=== PATIENT | male | born 1950 | race Caucasian/White ===

== ENCOUNTER 2018-02-24 10:11 | Emergency (ER) | payer MEDICARE, BC ==
[2018-02-24] MEDS ORDERED: Sodium Chloride 0.9% 10 ML Syringe FLUSH PRN (10:28)
[2018-02-24] MEDS ORDERED: Ketorolac 30 MG/ML SDV IVPUSH ONE (10:28)
--- NOTE | 2018-02-24 10:33 | EDM.PDOC ---
ED HPI GENERAL MEDICAL PROBLEM - General Chief Complaint: Genitourinary Problem Stated Complaint: SEVERE PAIN IN LOWER BACK Time Seen by Provider: 02/24/18 10:23 Source of Information: Reports: Patient, Family History Limitations: Reports: No Limitations - History of Present Illness INITIAL COMMENTS - FREE TEXT/NARRATIVE: 67-year-old male with fairly sudden left flank and left lower back pain this morning. He had a brief episode of similar pain 2 days ago but it resolved. Today it's much worse, and is having urinary symptoms of urgency and frequency but small amounts. He has not had pain like this in the past, he is usually very healthy and walks 6 miles every day. No fevers or chills. Nausea but no vomiting. Onset: Sudden Duration: Hour(s): (Pain is been ongoing for the past one hour) Location: Reports: Back Severity: Severe Associated Symptoms: Reports: Other (Urinary symptoms as in history of present illness) Right Lower Back Pain Score (Numeric/FACES): 10 - Related Data Allergies Allergy/AdvReac Type Severity Reaction Status Date / Time Penicillins Allergy Hives Verified 02/24/18 10:18 Home Meds: Home Meds NK [No Known Home Meds] 02/24/18 [History] Past Medical History Cardiovascular History: Reports: Hypertension Social & Family History - Tobacco Use Smoking Status *Q: Unknown Ever Smoked ED ROS GENERAL - Review of Systems Review Of Systems: See Below Constitutional: Denies: Fever, Chills HEENT: Reports: No Symptoms Respiratory: Reports: No Symptoms Cardiovascular: Reports: No Symptoms GI/Abdominal: Denies: Abdominal Pain : Reports: Frequency, Urgency Musculoskeletal: Reports: Back Pain Skin: Reports: No Symptoms Neurological: Reports: No Symptoms Psychiatric: Reports: No Symptoms ED EXAM, GENERAL - Physical Exam Exam: See Below Exam Limited By: No Limitations General Appearance: Alert, Anxious, Moderate Distress Respiratory/Chest: No Respiratory Distress, Lungs Clear Cardiovascular: Regular Rate, Rhythm GI/Abdominal: Non-Tender Back Exam: Other (Marked tenderness to palpation of the left paraspinous muscles ) Course - Vital Signs Last Recorded V/S: Last Vital Signs Temp 97.7 F 02/24/18 11:58 Pulse 71 02/24/18 11:58 Resp 14 02/24/18 11:58 BP 177/105 H 02/24/18 11:58 Pulse Ox 100 02/24/18 11:58 - Orders/Labs/Meds Orders: Active Orders 24 hr Category Date Time Status UA W/MICROSCOPIC [URIN] Urgent Lab 02/24/18 10:29 Ordered Saline Lock Insert [OM.PC] Routine Oth 02/24/18 10:28 Ordered Labs: Laboratory Tests 02/24/18 Range/Units 10:29 Urine Color Yellow Urine Appearance Slightly cloudy Urine pH 5.0 (4.5-8.0) Ur Specific [place] 1.020 (1.008-1.030) Urine Protein Negative (NEGATIVE) mg/dL Urine Glucose (UA) Normal (NEGATIVE) mg/dL Urine Ketones 15 H (NEGATIVE) mg/dL Urine Occult Blood Large (NEGATIVE) Urine Nitrite Negative (NEGAITVE) Urine Bilirubin Negative (NEGATIVE) Urine Urobilinogen Normal (NORMAL) mg/dL Ur Leukocyte Esterase Negative (NEGATIVE) Urine RBC 5-10 H (0-5) Urine WBC Not seen (0-5) Ur Epithelial Cells Rare Amorphous Sediment Not seen Urine Bacteria Rare Urine Mucus Rare Meds: Medications Discontinued Medications Generic Name Dose Route Start Last Admin Trade Name Freq PRN Reason Stop Dose Admin Ketorolac Tromethamine 30 mg 02/24/18 10:28 02/24/18 10:36 Toradol IVPUSH 02/24/18 10:29 30 mg ONETIME ONE Administration Sodium Chloride 10 ml 02/24/18 10:28 02/24/18 10:35 Saline Flush FLUSH 10 ml ASDIRECTED PRN Administration Keep Vein Open Tamsulosin HCl 0.4 mg 02/24/18 11:20 02/24/18 11:57 Flomax PO 02/24/18 11:21 0.4 mg ONETIME ONE Administration - Re-Assessments/Exams Free Text/Narrative Re-Assessment/Exam: 02/24/18 10:32 History is typical of a renal stone, exam indicates a possible muscle component as well. A saline lock was started, a UA was collected and the patient was given 30 mg of IV Toradol. A CT scan of the abdomen and pelvis without contrast will be obtained. 02/24/18 11:33 UA showed a small amount of ketones and RBCs, no evidence of inflammation. CT scan confirmed a distal very small obstructing left renal stone at the bladder. Patient felt much better after the Toradol. He was then given 0.4 mg of oral Flomax. 02/24/18 11:43 Patient continued to feel a small amount of pressure but overall was feeling much better. He is going to take a regular dose of Aleve or ibuprofen and stay hydrated, returning if not improving satisfactorily in the next few days or sooner if worsening such as persistent vomiting or uncontrolled pain. Departure - Departure Time of Disposition: 12:43 Disposition: Home, Self-Care 01 Condition: Good Clinical Impression: Kidney stone - Discharge Information Instructions: Kidney Stones, [id number] Referrals: Nav Castillo PA [Primary Care Provider] - Forms: ED Department Discharge Care Plan Goals: Stay hydrated, a regular dose of ibuprofen or naproxen should help if you persist with symptoms. Return if worsening such as persistent vomiting or uncontrolled pain. - My Orders Last 24 Hours: My Active Orders 02/24/18 10:28 Saline Lock Insert [OM.PC] Routine 02/24/18 10:29 UA W/MICROSCOPIC [URIN] Urgent - Assessment/Plan Last 24 Hours: My Active Orders 02/24/18 10:28 Saline Lock Insert [OM.PC] Routine 02/24/18 10:29 UA W/MICROSCOPIC [URIN] Urgent
[2018-02-24] MEDS ORDERED: Tamsulosin 0.4 MG Cap.ER PO ONE (11:20)
--- NOTE | 2018-02-24 11:38 | CT ---
Abdomen Pelvis wo Cont CLINICAL HISTORY: Left flank pain COMPARISON: None. TECHNIQUE: Axial tomographic images are obtained from the dome of the diaphragm to the pubic symphysi s without IV contrast enhancement. No oral contrast was used. Auto dosage reduction and iterative rec onstruction techniques employed. FINDINGS: The lung bases are clear. The liver is free of mass or biliary dilatation. The gallbladder has a normal appearance. The spleen has a normal size and shape. The pancreas shows no mass or inflam matory change. The adrenal glands appear normal bilaterally. No right renal calculi are identified. T here are some low-attenuation foci in the renal pelvis which appear to be parapelvic cysts. There is moderate left-sided hydronephrosis. There is perinephric and proximal ureteric stranding The re are some small stones in the lower pole calyces. The right ureter is dilated along its length. The re is a 2 x 5 mm stone in the left distal ureter at the UVJ. There is some generalized bladder wall t hickening which is exaggerated by nondistention. There are atherosclerotic changes in the aorta. Ther e is a normal caliber appendix. The there is a 1.0 x 1.7 cm appendicolith in the proximal portion IMPRESSION: 2 x 5 mm obstructing left distal ureteral calculus with moderate hydronephrosis and hydro ureter on the left. The there are scattered small calcifications in the lower pole of the left kidney Parapelvic cysts in the right kidney Large appendicolith with no evidence of appendicitis
== END 2018-02-24 12:44 | disposition home or self-care (01) ==
LOC: JP.ED 10:11
DX: N13.2 Hydronephrosis with renal and ureteral calculous obstruction (principal); I10 Essential (primary) hypertension; Z88.0 Allergy status to penicillin
CPT/HCPCS: 74176; 81001; 96374; 99284; A9270; J1885; J7050

== ENCOUNTER 2019-09-07 22:03 | Emergency (ER) | payer BC, MEDICARE ==
[2019-09-07] MEDS ORDERED: Ondansetron 4 MG/2 ML SDV IVPUSH ONE (22:41)
[2019-09-07] MEDS ORDERED: HYDROmorphone 1 MG/ML Syringe IVPUSH ONE (22:41)
[2019-09-07] MEDS ORDERED: Sodium Chloride 0.9% 1,000 ML IV SCH (22:45)
--- NOTE | 2019-09-07 22:54 | EDM.PDOC ---
ED HPI GENERAL MEDICAL PROBLEM - General Chief Complaint: Flank Pain Stated Complaint: LOWER BACK PAIN Time Seen by Provider: 09/07/19 22:32 Source of Information: Reports: Patient History Limitations: Reports: No Limitations - History of Present Illness INITIAL COMMENTS - FREE TEXT/NARRATIVE: chief complaint: kidney stone This is a 68 year old male presents to ER for evaluation for kidney stones. He reports was doing fine until he went out for his afternoon walked at 3:30pm and developed sudden onset of right sided back pain. Reports was difficult to walk back home - since has had constant right sided pain. denies hematuria, fever, chills, nausea, vomiting. Onset: Sudden Onset Date: 09/07/19 Onset Time: 15:30 Duration: Hour(s):, Getting Worse Location: Reports: Other (right flank pain) Quality: Reports: Same as Previous Episode (history of left sided kidney stones) Severity: Severe Improves with: Reports: None Worsens with: Reports: None Associated Symptoms: Reports: No Other Symptoms Right Lower Back Pain Score (Numeric/FACES): 10 - Related Data Allergies Allergy/AdvReac Type Severity Reaction Status Date / Time Penicillins Allergy Hives Verified 02/24/18 10:18 Home Meds: Home Meds NK [No Known Home Meds] 02/24/18 [History] Past Medical History Cardiovascular History: Reports: Hypertension ED ROS GENERAL - Review of Systems Review Of Systems: See Below Constitutional: Reports: Other (right flank pain) HEENT: Reports: No Symptoms Respiratory: Reports: No Symptoms Cardiovascular: Reports: No Symptoms GI/Abdominal: Reports: Abdominal Pain (right flank ) : Reports: Flank Pain (right) Musculoskeletal: Reports: No Symptoms Skin: Reports: No Symptoms Neurological: Reports: No Symptoms Psychiatric: Reports: No Symptoms Hematologic/Lymphatic: Reports: No Symptoms Immunologic: Reports: No Symptoms ED EXAM, GI/ABD - Physical Exam Exam: See Below Exam Limited By: No Limitations General Appearance: Alert, WD/WN, Moderate Distress Eyes: Bilateral: Normal Appearance, EOMI Ears: Normal External Exam, Normal Canal, Hearing Grossly Normal, Normal TMs Nose: Normal Inspection, Normal Mucosa, No Blood Throat/Mouth: Normal Inspection, Normal Lips, Normal Teeth, Normal Gums, Normal Oropharynx, Normal Voice, No Airway Compromise Head: Atraumatic, Normocephalic Neck: Normal Inspection, Supple, Non-Tender, Full Range of Motion Respiratory/Chest: No Respiratory Distress, Lungs Clear, Normal Breath Sounds, No Accessory Muscle Use, Chest Non-Tender Cardiovascular: Normal Peripheral Pulses GI/Abdominal Exam: Normal Bowel Sounds, Soft, No Distention, No Abnormal Bruit, Tender (right sided abdomen) (Male) Exam: Deferred Rectal (Males) Exam: Deferred Back Exam: CVA Tenderness (R) Extremities: Normal Inspection, Normal Range of Motion, Non-Tender, Normal Capillary Refill, No Pedal Edema Neurological: Alert, Oriented, CN II-XII Intact, Normal Cognition, Normal Gait, Normal Reflexes, No Motor/Sensory Deficits Psychiatric: Normal Affect, Normal Mood Skin Exam: Warm, Dry, Intact, Normal Color, No Rash Lymphatic: No Adenopathy Course - Vital Signs Last Recorded V/S: Last Vital Signs Temp 37.0 C 09/07/19 23:01 Pulse 75 09/07/19 23:01 Resp 16 09/07/19 23:01 BP 183/99 H 09/07/19 23:01 Pulse Ox 95 09/07/19 23:01 - Orders/Labs/Meds Orders: Active Orders 24 hr Category Date Time Status Sodium Chloride 0.9% [Normal Saline] 1,000 ml Med 09/07/19 22:45 Active IV ASDIRECTED Medication Orders Sodium Chloride (Normal Saline) 1,000 mls @ 999 mls/hr IV ASDIRECTED UVALDO Last Admin: 09/07/19 22:50 Dose: 999 mls/hr Labs: Laboratory Tests 09/07/19 09/07/19 09/07/19 Range/Units 22:34 22:55 22:55 WBC 11.7 H (4.5-11.0) K/uL RBC 5.01 (4.30-5.90) M/uL Hgb 15.3 H (12.0-15.0) g/dL Hct 45.6 (40.0-54.0) % MCV 91 (80-98) fL MCH 31 (27-31) pg MCHC 34 (32-36) % Plt Count 250 (150-400) K/uL Neut % (Auto) 87 H (36-66) % Lymph % (Auto) 6 L (24-44) % Caroline % (Auto) 7 H (2-6) % Eos % (Auto) 0 L (2-4) % Baso % (Auto) 0 (0-1) % Sodium 138 L (140-148) mmol/L Potassium 4.0 (3.6-5.2) mmol/L Chloride 105 (100-108) mmol/L Carbon Dioxide 26 (21-32) mmol/L Anion Gap 11.0 (5.0-14.0) mmol/L BUN 28 H (7-18) mg/dL Creatinine 1.7 H (0.8-1.3) mg/dL Est Cr Clr Drug Dosing 46.28 mL/min Estimated GFR (MDRD) 40 L (>60) Glucose 118 H (74-106) mg/dL Calcium 10.3 H (8.5-10.1) mg/dL Urine Color Yellow (YELLOW) Urine Appearance Clear (CLEAR) Urine pH 7.0 (5.0-8.0) Ur Specific [place] 1.025 (1.008-1.030) Urine Protein Negative (NEGATIVE) mg/dL Urine Glucose (UA) Negative (NEGATIVE) mg/dL Urine Ketones Negative (NEGATIVE) mg/dL Urine Occult Blood Trace-intact H (NEGATIVE) Urine Nitrite Negative (NEGATIVE) Urine Bilirubin Negative (NEGATIVE) Urine Urobilinogen 0.2 (0.2-1.0) EU/dL Ur Leukocyte Esterase Negative (NEGATIVE) Urine RBC 0-5 (0-5) Urine WBC 0-5 (0-5) Ur Epithelial Cells Few Amorphous Sediment Many Urine Bacteria Few Urine Mucus Not seen Meds: Medications Generic Name Dose Route Start Last Admin Trade Name Freq PRN Reason Stop Dose Admin Sodium Chloride 1,000 mls @ 999 mls/hr 09/07/19 22:45 09/07/19 22:50 Normal Saline IV 999 mls/hr ASDIRECTED UVALDO Administration Discontinued Medications Generic Name Dose Route Start Last Admin Trade Name Freq PRN Reason Stop Dose Admin Hydromorphone HCl 1 mg 09/07/19 22:41 09/07/19 22:52 Dilaudid IVPUSH 09/07/19 22:42 1 mg ONETIME ONE Administration Hydromorphone HCl 1 mg 09/08/19 00:21 Dilaudid IVPUSH 09/08/19 00:22 ONETIME ONE Ondansetron HCl 4 mg 09/07/19 22:41 09/07/19 22:50 Zofran IVPUSH 12/30/19 22:42 4 mg ONETIME ONE Administration Tamsulosin HCl 0.4 mg 09/08/19 00:21 Flomax PO 09/08/19 00:22 ONETIME ONE - Re-Assessments/Exams Free Text/Narrative Re-Assessment/Exam: 09/07/19 22:59 discussed with Mr. Corona plan of care; agrees -labs -CT Scan kidney stone protocol -medication for pain and nausea -IV fluids NS await results. 09/07/19 23:05 -pain controlled with Dilaudid, Mr. Wood reports feeling much better. -waiting labs and imaging results. 09/08/19 00:[address] scan shows bilateral calculus multi stones 2 to 3 mm. all nonobstructing. copy of CT scan given to Mr. Corona. -given additional dose of Dilaudid for return of pain and Flomazx 0.4mg po -will plan to discharge to home with [facility]; Flomax #8 Percocet #15 -advise to follow up in Primary Care -return to ER for any concerns or uncontrolled pain. Mr. Corona agrees with plan of care. is here to transport home. Departure - Departure Time of Disposition: 00:28 Disposition: Home, Self-Care 01 Condition: Good Clinical Impression: Kidney stone - Discharge Information *PRESCRIPTION DRUG MONITORING PROGRAM REVIEWED*: Not Applicable *COPY OF PRESCRIPTION DRUG MONITORING REPORT IN PATIENT [place]: Not Applicable Instructions: Kidney Stones, [id number] Referrals: PCP,None [Primary Care Provider] - Forms: ED Department Discharge Care Plan Goals: Kidney Stones - bilateral -Percocet one to two tablets every 4 to 6 hours as needed for pain. -Flomax 0.4mg po daily -push fluids -follow up in Primary Care -Return to ER for any increased pain, nausea, vomiting, diarrhea, rash, fever, chills or any concerns. Sepsis Event Note - Focused Exam Vital Signs: Vital Signs Temp Pulse Resp BP Pulse Ox 09/07/19 23:01 37.0 C 75 16 183/99 H 95 09/07/19 22:27 183/99 H 09/07/19 22:26 36.6 C 73 16 186/108 H 95 Date Exam was Performed: 09/08/19 Time Exam was Performed: 00:23 - Problem List & Annotations (1) Kidney stone SNOMED Code(s): 38155054 Code(s): N20.0 - CALCULUS OF KIDNEY Status: Acute Priority: High Current Visit: Yes - Problem List Review Problem List Initiated/Reviewed/Updated: Yes - My Orders Last 24 Hours: My Active Orders 09/07/19 22:45 Sodium Chloride 0.9% [Normal Saline] 1,000 ml IV ASDIRECTED - Assessment/Plan Last 24 Hours: My Active Orders 09/07/19 22:45 Sodium Chloride 0.9% [Normal Saline] 1,000 ml IV ASDIRECTED Plan: Kidney Stones - bilateral -Percocet one to two tablets every 4 to 6 hours as needed for pain. -Flomax 0.4mg po daily -push fluids -follow up in Primary Care -Return to ER for any increased pain, nausea, vomiting, diarrhea, rash, fever, chills or any concerns.
--- NOTE | 2019-09-07 23:45 | CRLCT ---
INDICATION: HISTORY COMPARISON: COMPARISON DATE TECHNIQUE: CT examination of the abdomen and pelvis was performed without contrast enhancement using 3 mm thick axial sections from the lung bases through the pubic symphysis. Oral contrast was not administered. Please note that all CT scans at this facility use dose modulation, iterative reconstruction, and/or weight-based dosing when appropriate to reduce radiation dose to as low as reasonably achievable. FINDINGS: There is new moderate right hydronephrosis and mild right hydroureter produced by a new 3 millimeter right UVJ calculus. There is a new 2 millimeter nonobstructive calculus in the lower pole of the right kidney. No additional right renal calculi are present. Again seen are multiple right parapelvic cysts. The previously seen moderate left hydronephrosis and mild left hydroureter has resolved, with passage of the previously seen tiny left UVJ calculus. Again seen are several small 2 and 3 millimeter calculi in the lower pole of the left kidney. Again seen are several small parapelvic cysts in the left kidney. In the abdomen, the unenhanced liver, spleen, pancreas, and adrenals are normal in appearance. The unenhanced kidneys are normal in appearance. The gallbladder is normal in appearance. The abdominal aorta is normal in caliber with no sign of dilatation. There is no sign of retroperitoneal mass or adenopathy. The stomach, loops of small bowel, and colon in the abdomen are normal in appearance. Again seen is a small fat containing periumbilical hernia. In the pelvis, the appendix is normal in appearance with no sign of inflammatory process. The loops of small bowel and colon in the pelvis are normal in appearance. The prostate remains mildly enlarged normal in appearance. The urinary bladder is normal in appearance. There is no sign of pelvic or inguinal mass or adenopathy. Again seen are small fat containing bilateral indirect inguinal hernias. There is new mild linear dependent atelectasis in the posterior lung bases. The osseous structures are normal in appearance for the patient`s age. IMPRESSION: New moderate right hydronephrosis and mild right hydroureter produced by a new 3 millimeter right UVJ calculus. Resolution of previously seen moderate left hydronephrosis and mild left hydroureter with passage of the previously seen tiny left UVJ calculus. CT of the abdomen shows a new single nonobstructive calculus in the right kidney and stable 3 small nonobstructive calculi in the left kidney. CT of the pelvis shows no change in mild enlargement of the prostate. Again seen are small fat containing bilateral indirect inguinal hernias. Please note that all CT scans at this facility use dose modulation, iterative reconstruction, and/or weight-based dosing when appropriate to reduce radiation dose to as low as reasonably achievable. Dictated by Royer Faulkner MD @ Sep 07 2019 11:35PM Signed by Dr. Royer Faulkner @ Sep 07 2019 11:44PM
[2019-09-08] MEDS ORDERED: Tamsulosin 0.4 MG Cap.ER PO ONE (00:21)
[2019-09-08] MEDS ORDERED: HYDROmorphone 1 MG/ML Syringe IVPUSH ONE (00:21)
== END 2019-09-08 00:56 | disposition home or self-care (01) ==
LOC: JP.ED 22:03
DX: N13.2 Hydronephrosis with renal and ureteral calculous obstruction (principal); I10 Essential (primary) hypertension; Z88.0 Allergy status to penicillin
CPT/HCPCS: 36415; 74176; 80048; 81001; 85025; 96361; 96374; 96375; 96376; 99284; A9270; J1170; J2405; J7030

== ENCOUNTER 2020-11-17 10:41 | Emergency (ER) | payer MEDICARE ==
--- NOTE | 2020-11-17 11:35 | EDM.PDOC ---
ED HPI GENERAL MEDICAL PROBLEM - General Chief Complaint: Cardiovascular Problem Stated Complaint: HIGH BP Time Seen by Provider: 11/17/20 11:15 Source of Information: Reports: Patient, Provider History Limitations: Reports: No Limitations - History of Present Illness INITIAL COMMENTS - FREE TEXT/NARRATIVE: 69-year-old male was in to see the simulation educator and his blood pressure measured 180/120. The simulation educator has a rule that he does not discharge anyone with diastolic blood pressures of 120 so he sent him over to the emergency room. He is completely asymptomatic. No treatment was given initially and when I went in to see the patient roughly 15 minutes after he arrived to the ER, his blood pressure was 173/106. Apparently he checks his blood pressure every week and it is "never high". Onset: Unknown/Unsure - Related Data Allergies Allergy/AdvReac Type Severity Reaction Status Date / Time Antihistamines - Alkylamine Allergy Facial Verified 11/17/20 11:04 Swelling Penicillins Allergy Hives Verified 11/17/20 11:04 Home Meds: Home Meds Multivitamin [Multi-Vitamin Daily] 1 each PO DAILY 11/17/20 [History] lisinopriL [Lisinopril] 20 mg PO DAILY 11/17/20 [History] Past Medical History Cardiovascular History: Reports: Hypertension Genitourinary History: Reports: Renal Calculus Musculoskeletal History: Reports: Fracture Other Musculoskeletal History: ankle,foot, finger - Infectious Disease History Infectious Disease History: Reports: Chicken Pox, Measles, Mumps - Past Surgical History GI Surgical History: Reports: Colonoscopy Social & Family History - Tobacco Use Tobacco Use Status *Q: Never Tobacco User - Caffeine Use Caffeine Use: Reports: Tea - Recreational Drug Use Recreational Drug Use: No ED ROS GENERAL - Review of Systems Review Of Systems: See Below Constitutional: Reports: No Symptoms HEENT: Reports: Other (Several days ago he had a spontaneous conjunctival hemorrhage in his left eye which is asymptomatic) Respiratory: Reports: No Symptoms Cardiovascular: Reports: No Symptoms GI/Abdominal: Reports: No Symptoms Skin: Reports: No Symptoms Neurological: Reports: No Symptoms Psychiatric: Reports: No Symptoms Free Text/Narrative/Comment: Patient walks between 5 and 7 miles daily without problems. ED EXAM, GENERAL - Physical Exam Exam: See Below Exam Limited By: No Limitations General Appearance: Alert, No Apparent Distress Eye Exam: Left Eye: Other (The conjunctiva and sclera has a hemorrhage) Head: Atraumatic Respiratory/Chest: No Respiratory Distress, Lungs Clear Cardiovascular: Regular Rate, Rhythm Extremities: Normal Inspection. No: Pedal Edema Neurological: Alert, Oriented Psychiatric: Normal Affect, Normal Mood Skin Exam: Warm, Dry Course - Vital Signs Last Recorded V/S: Last Vital Signs Temp 96.9 F 11/17/20 11:09 Pulse 67 11/17/20 11:22 Resp 16 11/17/20 11:09 BP 173/106 H 11/17/20 11:22 Pulse Ox 98 11/17/20 11:22 - Re-Assessments/Exams Free Text/Narrative Re-Assessment/Exam: 11/17/20 11:46 Discussed his case with the simulation educator and sent him over and his blood pressure is now 173/106. He was reassured with that and the patient was instructed to increase his lisinopril to 40 mg a day, check his blood pressure daily and recheck next week. He can return anytime if he develops symptoms such as shortness of breath, chest pain, headache or other concerns Departure - Departure Time of Disposition: 11:38 Disposition: Home, Self-Care 01 Clinical Impression: Essential hypertension Instructions: Hypertension, Adult Referrals: Mike Velasquez NP [Primary Care Provider] - Forms: ED Department Discharge Care Plan Goals: Increase your lisinopril as instructed by your simulation educator, and check your blood pressure daily and recheck next week. Return to the emergency room at any time if you develop chest pain, shortness of breath, headache or other concerns. Avoid extra salt. Sepsis Event Note (ED) - Evaluation Sepsis Screening Result: No Definite Risk - Focused Exam Vital Signs: Vital Signs Temp Pulse Resp BP Pulse Ox 11/17/20 11:22 67 173/106 H 98 11/17/20 11:09 96.9 F 74 16 203/132 H 98 11/17/20 10:51 96.9 F 74 16 203/132 H 98
== END 2020-11-17 11:42 | disposition home or self-care (01) ==
LOC: JP.ED 10:41
DX: I10 Essential (primary) hypertension (principal); Z88.8 Allergy status to other drugs, medicaments and biological substances; Z88.0 Allergy status to penicillin; Z79.899 Other long term (current) drug therapy
CPT/HCPCS: 99283

== ENCOUNTER → 2022-10-10 | Day surgery (SDC) | payer MEDICARE ==
[~2022-10-10] MED LIST: Lactated Ringers 1,000 ML IV SCH; Propofol 200 MG/20 ML SDV ONE; fentaNYL 50 MCG/ML SDV ONE
== END ==
LOC: JP.SDS 06:34
PROVIDERS: ATTEND Student in an Organized Health Care Education/Training Program
DX: Z12.11 Encounter for screening for malignant neoplasm of colon (principal); K63.5 Polyp of colon; K57.30 Diverticulosis of large intestine without perforation or abscess without bleeding; I12.9 Hypertensive chronic kidney disease with stage 1 through stage 4 chronic kidney disease, or unspecified chronic kidney disease; N18.9 Chronic kidney disease, unspecified; Z79.899 Other long term (current) drug therapy; Z88.0 Allergy status to penicillin; Z88.8 Allergy status to other drugs, medicaments and biological substances
CPT/HCPCS: 45380; 45385; 88305; J2704; J3010; J7120